=== PATIENT | female | born 1985 | race Caucasian/White ===

== ENCOUNTER 2017-10-10 23:04 | Emergency (ER) | payer OTHER ==
[2017-10-11] MEDS ORDERED: Adacel (T-DAP) 0.5 ML VIAL ONE (00:19)
[2017-10-11 01:26] LABS: HIV (1/2) Antibody/Antigen Non-Reactive (NonReactive); HIV 1/2 INDEX 0.11 S/CO (<1.00); Hep C IgG Ab Non-Reactive (NonReactive); Hep C Index 0.18 S/CO (0-0.79)
[2017-10-11 02:34] LABS: Hep B Surf AB Reactive (NonReactive)
== END 2017-10-11 00:47 | disposition home or self-care (01) ==
LOC: ERS 23:04
DX: Z77.21 Contact with and (suspected) exposure to potentially hazardous body fluids (principal); J45.909 Unspecified asthma, uncomplicated
CPT/HCPCS: 36415; 86706; 86803; 87389; 90471; 90715